=== PATIENT | female | born 1955 | race Two or more races ===

== ENCOUNTER → 2023-03-01 06:00 | Outpatient (CLI) | payer OTHER ==
[~2023-03-01] VITALS: Ht 165.1 cm; Wt 104.3 kg
[~2023-03-01 06:00] MED LIST: B12 ACTIVE1000 MCG PO; FAMOTIDINE40 MG PO; FUROSEMIDE20 MG PO; LIPITOR40 MG PO; LOSARTAN POTASS50 MG PO; METFORMIN HCL1000 M2 PO; NIFE60TA3 PO
[2023-03-01 10:25] LABS: HEMATOCRIT 36.3 % (36.0-45.00); MEAN CELL VOLUME 90.9 fL (80.00-100.00); MEAN CORPUSCULAR HEMOGLOBIN 30.1 pg (27.00-32.0); MEAN CORPUSCULAR HGB CONC 33.2 g/dl (32.0-36.0); PLATELET COUNT 247 K/uL (150-450); RED CELL DISTRIBUTION WIDTH 14.9 % (11.5-14.5)
[2023-03-01 10:43] LABS: INR 0.98; PARTIAL THROMBOPLASTIN TIME 28.8 SECONDS (22.0-34.0); PROTHROMBIN TIME 10.3 SECONDS (9.0-11.5)
[2023-03-01 10:51] LABS: ALBUMIN 3.4 gm/dL (3.4-5.0); BILIRUBIN TOTAL 0.4 mg/dL (0.3-1.2); CALCIUM 9.1 mg/dL (8.5-10.1); CREATININE SERUM 1.5 mg/dL (0.55-1.02); GFR 34.53; GLOBULINA 3.9 G/DL (2.4-3.5); POTASSIUM 5.08 mEq/L (3.5-5.1); TOTAL PROTEIN 7.3 gm/dL (6.4-8.2)
[2023-03-01 10:55] LABS: URINE APPEARANCE Cloudy; URINE BILIRRUBIN Negative (NEGATIVE); URINE BLOOD Negative; URINE COLOR Dark Yellow; URINE GLUCOSE Negative (NEGATIVE); URINE LEUKOCYTE Trace; URINE NITRATE Negative; URINE PROTEIN 30 (NEGATIVE)
[2023-03-01 10:59] LABS: URINE BACTERIA 2252.1 uL (0.0-1933); URINE EPITHELIAL CELLS 91.6 uL (0.0-38.8); URINE RBC 12.4 uL (0.0-20.8); URINE WBC 27.8 uL (0.0-23.2)
== END | disposition home or self-care (01) ==
LOC: LAB 06:00 → EDSTATUS 03-07 08:00 → SURG 03-07 08:00
PROVIDERS: ATTEND Orthopaedic Surgery Sports Medicine
DX: Z01.810 Encounter for preprocedural cardiovascular examination (principal); M17.11 Unilateral primary osteoarthritis, right knee; I10 Essential (primary) hypertension

== ENCOUNTER 2023-04-07 07:23 | Inpatient (IN) | payer OTHER ==
[~2023-04-07] VITALS: Ht 165.1 cm; Wt 113.4 kg
[2023-04-07 08:30] LABS: HEMATOCRIT 35.4 % (36.0-45.00); HEMOGLOBIN 11.5 g/dL (12.0-15.00); MEAN CELL VOLUME 91.6 fL (80.00-100.00); MEAN CORPUSCULAR HEMOGLOBIN 29.8 pg (27.00-32.0); MEAN CORPUSCULAR HGB CONC 32.6 g/dl (32.0-36.0); PLATELET COUNT 279 K/uL (150-450); RED BLOOD COUNT 3.86 M/uL (4.00-6.00); RED CELL DISTRIBUTION WIDTH 14.9 % (11.5-14.5)
[2023-04-07 08:43] LABS: PH,URINE 5.5 (5.0-8.0); URINE APPEARANCE Clear; URINE BILIRRUBIN Negative (NEGATIVE); URINE BLOOD Negative; URINE COLOR Yellow; URINE GLUCOSE Negative (NEGATIVE); URINE LEUKOCYTE Negative; URINE NITRATE Negative; URINE PROTEIN Negative (NEGATIVE); URINE UROBILINOGEN 0.2 E.U./dl
[2023-04-07 08:44] LABS: URINE BACTERIA 269.5 uL (0.0-1933); URINE EPITHELIAL CELLS 7.4 uL (0.0-38.8); URINE RBC 3.1 uL (0.0-20.8); URINE WBC 5.2 uL (0.0-23.2)
[2023-04-07 08:54] LABS: INR 0.95; PARTIAL THROMBOPLASTIN TIME 29.3 SECONDS (22.0-34.0)
[2023-04-07 09:00] LABS: ALBUMIN 3.5 gm/dL (3.4-5.0); BILIRUBIN TOTAL 0.46 mg/dL (0.3-1.2); CALCIUM 9.3 mg/dL (8.5-10.1); CREATININE SERUM 2.01 mg/dL (0.55-1.02); GFR 24.63; GLOBULINA 3.7 G/DL (2.4-3.5); POTASSIUM 5.09 mEq/L (3.5-5.1); TOTAL PROTEIN 7.2 gm/dL (6.4-8.2)
[2023-04-08] MEDS ORDERED: CEFDINIR300 MG PO (18:45)
[2023-04-11 21:00] LABS: HEMATOCRIT 34.6 % (36.0-45.00); HEMOGLOBIN 11.1 g/dL (12.0-15.00); RED BLOOD COUNT 3.75 M/uL (4.00-6.00)
[2023-04-12 07:58] LABS: HEMATOCRIT 31.3 % (36.0-45.00); HEMOGLOBIN 10.4 g/dL (12.0-15.00); MEAN CELL VOLUME 91.6 fL (80.00-100.00); MEAN CORPUSCULAR HEMOGLOBIN 30.4 pg (27.00-32.0); MEAN CORPUSCULAR HGB CONC 33.2 g/dl (32.0-36.0); PLATELET COUNT 224 K/uL (150-450); RED BLOOD COUNT 3.42 M/uL (4.00-6.00); RED CELL DISTRIBUTION WIDTH 14.5 % (11.5-14.5)
[2023-04-12 19:48] LABS: ALBUMIN 2.7 gm/dL (3.4-5.0); BILIRUBIN TOTAL 0.68 mg/dL (0.3-1.2); CALCIUM 8.5 mg/dL (8.5-10.1); CREATININE SERUM 1.41 mg/dL (0.55-1.02); GFR 37.09; GLOBULINA 3.4 G/DL (2.4-3.5); POTASSIUM 5.08 mEq/L (3.5-5.1); TOTAL PROTEIN 6.1 gm/dL (6.4-8.2)
[2023-04-13] MEDS ORDERED: OXYC1TAB9 PO (08:04)
[2023-04-13] MEDS ORDERED: BACTRIM DS TAB1 EACH PO (08:04)
[2023-04-13] MEDS ORDERED: XARELTO20 MG PO (08:04)
[2023-04-13] MEDS ORDERED: INTEGRA PLUS C1 EACH PO (08:04)
[2023-04-13 08:25] LABS: HEMATOCRIT 26.8 % (36.0-45.00); HEMOGLOBIN 9.1 g/dL (12.0-15.00); MEAN CELL VOLUME 90.9 fL (80.00-100.00); MEAN CORPUSCULAR HEMOGLOBIN 30.9 pg (27.00-32.0); PLATELET COUNT 220 K/uL (150-450); RED BLOOD COUNT 2.95 M/uL (4.00-6.00); RED CELL DISTRIBUTION WIDTH 14.5 % (11.5-14.5)
[2023-04-15 07:26] LABS: CALCIUM 8.9 mg/dL (8.5-10.1); CREATININE SERUM 1.34 mg/dL (0.55-1.02); GFR 39.33; POTASSIUM 5.04 mEq/L (3.5-5.1)
[2023-04-15 07:28] LABS: HEMATOCRIT 28.1 % (36.0-45.00); HEMOGLOBIN 9.6 g/dL (12.0-15.00); MEAN CELL VOLUME 92.3 fL (80.00-100.00); MEAN CORPUSCULAR HEMOGLOBIN 31.4 pg (27.00-32.0); MEAN CORPUSCULAR HGB CONC 34.1 g/dl (32.0-36.0); PLATELET COUNT 257 K/uL (150-450); RED BLOOD COUNT 3.05 M/uL (4.00-6.00); RED CELL DISTRIBUTION WIDTH 14.1 % (11.5-14.5)
[2023-04-18 07:57] LABS: CALCIUM 8.7 mg/dL (8.5-10.1); CREATININE SERUM 1.26 mg/dL (0.55-1.02); GFR 42.23; MAGNESIUM 1.9 mg/dL (1.8-2.4); POTASSIUM 4.63 mEq/L (3.5-5.1); T4 TOTAL 8.34 UG/DL (4.8-13.9)
[2023-04-18 08:12] LABS: HEMATOCRIT 24.7 % (36.0-45.00); MEAN CELL VOLUME 89.6 fL (80.00-100.00); PLATELET COUNT 293 K/uL (150-450); RED BLOOD COUNT 2.76 M/uL (4.00-6.00); RED CELL DISTRIBUTION WIDTH 14.6 % (11.5-14.5)
[2023-04-18 08:15] LABS: HEMOGLOBIN 8.6 g/dL (12.0-15.00); MEAN CORPUSCULAR HEMOGLOBIN 31.1 pg (27.00-32.0)
[2023-04-19 13:15] LABS: HEMATOCRIT 28.5 % (36.0-45.00); HEMOGLOBIN 9.7 g/dL (12.0-15.00); MEAN CELL VOLUME 89.3 fL (80.00-100.00); MEAN CORPUSCULAR HEMOGLOBIN 30.5 pg (27.00-32.0); MEAN CORPUSCULAR HGB CONC 34.1 g/dl (32.0-36.0); PLATELET COUNT 342 K/uL (150-450); RED BLOOD COUNT 3.19 M/uL (4.00-6.00); RED CELL DISTRIBUTION WIDTH 14.8 % (11.5-14.5)
[2023-04-20 11:48] LABS: T4 FREE 1.18 NG/ML (0.76-1.46); TSH 5.4 uIU/mL (0.358-3.74)
[2023-04-22] MEDS ORDERED: XARELTO20 MG PO (08:39)
[2023-04-22] MEDS ORDERED: INTEGRA PLUS C1 EACH PO (08:39)
[2023-04-22] MEDS ORDERED: OXYC1TAB9 PO (08:39)
== END 2023-04-22 17:26 | DRG 470 ==
LOC: SURH 04-11 05:55 → O/R 04-11 05:55 → SURG 04-11 08:45 → SURH 04-11 18:20
PROVIDERS: Internal Medicine; Internal Medicine Endocrinology, Diabetes & Metabolism; Internal Medicine Geriatric Medicine; ADMIT Orthopaedic Surgery Sports Medicine; ATTEND Orthopaedic Surgery Sports Medicine
PROC: 0SRC0J9 Replacement of Right Knee Joint with Synthetic Substitute, Cemented, Open Approach (ICD-10-PCS; principal; 2023-04-11 13:00)
PROC: 4A12X4Z Monitoring of Cardiac Electrical Activity, External Approach (ICD-10-PCS; 2023-04-12)
PROC: B246ZZZ Ultrasonography of Right and Left Heart (ICD-10-PCS; 2023-04-16)
PROC: B54MZZZ Ultrasonography of Right Upper Extremity Veins (ICD-10-PCS; 2023-04-16)
PROC: 30233N1 Transfusion of Nonautologous Red Blood Cells into Peripheral Vein, Percutaneous Approach (ICD-10-PCS; 2023-04-18)
PROC: 5A2204Z Restoration of Cardiac Rhythm, Single (ICD-10-PCS; 2023-04-20)
PROC: B245ZZ4 Ultrasonography of Left Heart, Transesophageal (ICD-10-PCS; 2023-04-20)
DX: M17.11 Unilateral primary osteoarthritis, right knee (principal); I48.20 Chronic atrial fibrillation, unspecified; I48.92 Unspecified atrial flutter; M79.631 Pain in right forearm; E03.8 Other specified hypothyroidism; D64.89 Other specified anemias; I49.8 Other specified cardiac arrhythmias; I11.9 Hypertensive heart disease without heart failure; E11.65 Type 2 diabetes mellitus with hyperglycemia; Z79.84 Long term (current) use of oral hypoglycemic drugs